=== PATIENT | male | born 1995 | race American Indian/Alaskan Native ===

== ENCOUNTER 2017-09-28 06:07 | Emergency (ER) | payer OTHER ==
--- NOTE | 2017-09-28 08:08 | XRay Report ---
Right shoulder 3 views: History: Injury, shoulder pain. Findings: No bony or articular abnormality. No fracture or dislocation. Impression: Essentially negative right shoulder.
--- NOTE | 2017-09-28 08:09 | XRay Report ---
Right hand 3 views: History: Injury, pain. Findings: No bony or articular abnormality. No this fracture noted at the distal aspect of middle phalanx fourth finger right hand. The fracture line is vertical and extends to the articular margin. No dislocation. Impression: Fracture middle phalanx fourth finger right hand..
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
[2017-09-28] MEDS ORDERED: MOTRIN PO ONE (12:30)
[2017-09-28] MEDS ORDERED: XYLOCAINE 1% MPF 5 mL INFILTRATI ONE (12:30)
[2017-09-28] MEDS ORDERED: NACL 0.9% IR ONE (12:30)
[2017-09-28] MEDS ORDERED: TRIPLE ANTIBIOTIC TP ONE ×2 (12:31→14:36)
[2017-09-28 14:38] VITALS: BP 124/82
== END 2017-09-28 14:36 | disposition home or self-care (01) ==
LOC: ED 06:07
DX: S61.412A Laceration without foreign body of left hand, initial encounter (principal); S01.511A Laceration without foreign body of lip, initial encounter; S60.512A Abrasion of left hand, initial encounter; S60.511A Abrasion of right hand, initial encounter; S60.811A Abrasion of right wrist, initial encounter; S60.412A Abrasion of right middle finger, initial encounter; W17.89XA Other fall from one level to another, initial encounter; Y93.89 Activity, other specified; Y92.89 Other specified places as the place of occurrence of the external cause; Y99.8 Other external cause status
CPT/HCPCS: A6250